=== PATIENT | female | born 1950 | race Caucasian/White ===

== ENCOUNTER 2022-08-01 09:57 | Day surgery (SDC) | payer MEDICARE, MEDICAID ==
[~2022-08-01] VITALS: Ht 172.7 cm; Wt 72.7 kg
[2022-08-01 10:30] VITALS: BP 144/105
[2022-08-01] MEDS ORDERED: fentaNYL/PF 50MCG/1 ML 2ML syringe ONE ×3 (10:38→14:04)
[2022-08-01] MEDS ORDERED: MIDAZolam 1 MG/ML 5ML VIAL ONE ×2 (10:38)
[2022-08-01] MEDS ORDERED: LIDOcaine Viscous 15ml cup ONE (10:39)
[2022-08-01] MEDS ORDERED: ALPR0.5T9 PO (10:45)
[2022-08-01] MEDS ORDERED: OMEP40CA21 PO (10:45)
[2022-08-01] MEDS ORDERED: FEXO-236 PO (10:45)
[2022-08-01] MEDS ORDERED: HYDR-3968 PO (10:45)
[2022-08-01] MEDS ORDERED: SUCR1ORA15 PO (10:45)
[2022-08-01] MEDS ORDERED: MONT-40 PO (10:45)
[2022-08-01 13:25] VITALS: BP 120/75
[2022-08-01 13:35] VITALS: BP 136/76
[2022-08-01 13:45] VITALS: BP 131/82
[2022-08-01 13:55] VITALS: BP 154/90
== END 2022-08-01 14:00 | disposition home or self-care (01) ==
LOC: GI LAB 09:57
PROVIDERS: ATTEND Internal Medicine Gastroenterology
DX: Z12.11 Encounter for screening for malignant neoplasm of colon (principal); R10.13 Epigastric pain; K21.00 Gastro-esophageal reflux disease with esophagitis, without bleeding; K31.89 Other diseases of stomach and duodenum; K29.50 Unspecified chronic gastritis without bleeding; Z88.0 Allergy status to penicillin; Z88.2 Allergy status to sulfonamides; Z88.8 Allergy status to other drugs, medicaments and biological substances; Z88.1 Allergy status to other antibiotic agents
CPT/HCPCS: 43239; 43248; 88305; 99153; C1769; G0121; G0500; J2250; J3010; J7030; Z7512; 45378; 99152; A4620